=== PATIENT | female | born 1965 | race African-American/Black ===

== ENCOUNTER 2023-04-22 08:47 | Outpatient (CLI) | payer OTHER ==
[2023-04-22 10:28] LABS: Anion Gap 13 mmol/L (10-20); BUN (Urea Nitrogen) 13 mg/dL (9.8-20.1); Calc. Creatinine Clearance 0 mL/min (70-130); Calcium 9.3 mg/dL (7.8-10.44); Carbon Dioxide 25 mmol/L (22-29); Chloride 107 mmol/L (98-107); Estimated GFR 90; Glucose 95 mg/dL (70-105); Potassium 4.6 mmol/L (3.5-5.1); Sodium 140 mmol/L (136-145)
== END 2023-04-22 08:48 | disposition home or self-care (01) ==
LOC: CSHLAB 08:47
PROVIDERS: ATTEND Otolaryngology Otolaryngic Allergy
DX: Z01.818 Encounter for other preprocedural examination (principal)
CPT/HCPCS: 80048; 85014; 93005; 93010

== ENCOUNTER 2025-07-02 19:56 | Emergency (ER) | payer BC ==
[2025-07-02] MEDS ORDERED: HYDROmorphone 0.5 MG/0.5 ML SYRINGE ONE (21:04)
[2025-07-02 21:05] LABS: Hematocrit 27.5 % (34.9-44.5); Hemoglobin 8.5 g/dL (12.0-15.5); Mean Corpuscular Hemoglobin 26.5 pg (27.0-33.0); Mean Corpuscular Volume 85.7 fL (81.6-98.3); Platelet Count 129 10x3/uL (150-450); Red Blood Cell (RBC) Count 3.21 10x6/uL (3.90-5.03); White Blood Cell (WBC) Count 5.75 10x3/uL (3.5-10.5)
[2025-07-02 21:13] LABS: ALT (SGPT) 16 U/L (Less than 34); AST (SGOT) 54 U/L (11-34); Albumin 2.6 g/dL (3.1-4.5); Alkaline Phosphatase 254 U/L (40-110); Anion Gap 12 mmol/L (10-20); BUN (Urea Nitrogen) 15 mg/dL (9.8-20.1); Bilirubin, Total 0.3 mg/dL (0.3-1.2); Calc. Creatinine Clearance 0 mL/min (70-130); Calcium 9.5 mg/dL (7.8-10.44); Carbon Dioxide 26 mmol/L (22-29); Chloride 101 mmol/L (98-107); Globulin 4.6 g/dL (2.4-3.5); Glucose 151 mg/dL (70-105); Potassium 4.1 mmol/L (3.5-5.1); Sodium 135 mmol/L (136-145)
[2025-07-02] MEDS ORDERED: Vancomycin 1.5 GRAM/300 ML BAG 1.5 GM in Premix 1 BAG IVPB SCH (21:15)
[2025-07-02 21:35] LABS: MDiff Complete? YES; Microcytosis SLIGHT = 6-15 cells (100X) (0-5/hpf); Ovalocytes SLIGHT = 2-5 cells (100X) (0-1/hpf); Platelet Adequacy Comment Appears Adequate; Poikilocytosis SLIGHT = 6-15 cells (100X) (0-5/hpf)
[2025-07-02 22:01] LABS: Actual Bicarbonate (HCO3v) 22.8 mEq/L (22-28); Analyzer IN Cardio CS ER; Base Excess -1.7 mEq/L (-2 - +2); Calcium, Ionized (venous) 1.17 mmol/L (1.16-1.32); Chloride (VBG) 102 mmol/L (98-106); Hematocrit-VBG 28 % (36.0-47.0); Hemoglobin (Hb) 9.4 g/dL (11.7-16.0); Potassium (VBG) 4.21 mmol/L (3.70-5.30); Puncture Site Other Site; RapidComm Collect By lab; Sodium 135 mmol/L (133-146)
[2025-07-02 23:40] LABS: Glucose, Urine (Dipstick) Normal (Negative); Leukocyte 25 (Negative); Protein, Urine (Dipstick) 30 mg/dl (Neg-Trace); Specific Gravity, Urine 1.010 (1.005-1.030)
[2025-07-02 23:50] LABS: Bacteria/HPF Rare-Few HPF (None Seen); CAUTI Indications for Culture Pelvic or flank pain; RBC/HPF 0-3 HPF (0-3); WBC/HPF 0-3 HPF (0-3)
[2025-07-02 23:51] LABS: Urine Culture Reflex No No
[2025-07-03] MEDS ORDERED: HYDROmorphone 0.5 MG/0.5 ML SYRINGE ONE ×4 (00:44→08:40)
== END 2025-07-03 08:45 | disposition short-term general hospital (02) ==
LOC: CSHERS 19:56
DX: A41.9 Sepsis, unspecified organism (principal); H01.003 Unspecified blepharitis right eye, unspecified eyelid; L03.211 Cellulitis of face; C08.9 Malignant neoplasm of major salivary gland, unspecified; I10 Essential (primary) hypertension
CPT/HCPCS: 70487; 80053; 81001; 82805; 83605; 85025; 87040; 87086; 87426; 93005; 94760; 96374; 96375; 96376; J1171; J2543; J3373